=== PATIENT | male | born 2000 | race African-American/Black ===

== ENCOUNTER 2018-02-05 17:22 | Emergency (ER) | payer BC, OTHER | END 2018-02-05 18:36 | disposition home or self-care (01) | LOC: M ED 17:22 | DX: K12.0 Recurrent oral aphthae (principal); F41.9 Anxiety disorder, unspecified; F12.10 Cannabis abuse, uncomplicated; F10.10 Alcohol abuse, uncomplicated | CPT/HCPCS: 87880 ==

== ENCOUNTER 2018-04-04 22:50 | Emergency (ER) | payer BC, OTHER | END 2018-04-05 00:06 | disposition home or self-care (01) | LOC: M ED 04-05 00:06 | DX: R07.0 Pain in throat (principal); Z72.0 Tobacco use; F10.10 Alcohol abuse, uncomplicated | CPT/HCPCS: 99282 ==

== ENCOUNTER 2023-04-05 09:29 | Emergency (ER) | payer BC, OTHER ==
[~2023-04-05] VITALS: Ht 185.4 cm; Wt 65.5 kg
[~2023-04-05 09:29] MED LIST: MAGICMW SSP
[2023-04-05] MEDS ORDERED: ACETAMINOPHEN 325 MG TAB PO ONE (12:00)
[2023-04-05] MEDS ORDERED: ONDANSETRON 4MG ORAL DISINTEGRATING TAB PO ONE (12:00)
[2023-04-05 15:22] VITALS: BP 131/86; TEMP 98.4; O2SAT 99
== END 2023-04-05 15:28 | disposition home or self-care (01) ==
LOC: M ED 09:29
DX: F43.0 Acute stress reaction (principal); R51.9 Headache, unspecified; R11.0 Nausea; F90.9 Attention-deficit hyperactivity disorder, unspecified type; F43.10 Post-traumatic stress disorder, unspecified; F12.10 Cannabis abuse, uncomplicated; F10.10 Alcohol abuse, uncomplicated